=== PATIENT | male | born 1955 | race Two or more races ===

== ENCOUNTER → 2016-11-01 | Outpatient (CLI) | payer OTHER | END | disposition home or self-care (01) | LOC: CFH 11:55 | PROVIDERS: ATTEND Internal Medicine Cardiovascular Disease | DX: R07.89 Other chest pain (principal); I10 Essential (primary) hypertension | CPT/HCPCS: 78452; 93017; A9502 ==

== ENCOUNTER → 2018-10-30 | Outpatient (CLI) | payer OTHER | END | disposition home or self-care (01) | LOC: CVU 07:00 | PROVIDERS: ATTEND Internal Medicine Cardiovascular Disease | DX: I08.0 Rheumatic disorders of both mitral and aortic valves (principal); I10 Essential (primary) hypertension; E78.5 Hyperlipidemia, unspecified | CPT/HCPCS: 93306 ==